=== PATIENT | male | born 1955 | race Caucasian/White ===

== ENCOUNTER 2021-02-03 06:40 | Outpatient (REF) | payer SELFPAY ==
[2021-02-03 06:57] LABS: Hematocrit 47.7 % (42-52); Hemoglobin 15.5 g/dl (14.0-18.0); Mean Corpuscular HGB Conc 32.5 g/dl (31.0-36.0); Mean Corpuscular Hemoglobin 27.3 pg (27.0-33.0); Mean Corpuscular Volume 84.1 fL (80-98); Mean Platelet Volume 8.3 fL (9.4-12.4); Platelet Count 238 X10*3/uL (160-400); Red Blood Count 5.67 X10*6/uL (4.60-5.80); Red Cell Distribution Width 13.1 % (11.0-16.0); White Blood Count 5.4 X10*3/uL (4.8-10.8)
[2021-02-03 07:34] LABS: Anion Gap 14 (12-20); Blood Urea Nitrogen 15 mg/dL (9-16); Calcium 9.2 mg/dL (8.4-10.2); Carbon Dioxide 28 mmol/L (22-29); Chloride 102 mmol/L (96-108); Estimated Glomerular Filt Rate > 60; Glucose Random 141 mg/dL (60-115); Potassium 4.4 mmol/L (3.3-5.1); Sodium 140 mmol/L (135-145)
== END 2021-02-03 06:41 | disposition home or self-care (01) ==
LOC: HO.MMNH1L 06:40
PROVIDERS: Visit Provider Family Medicine
DX: U07.1 COVID-19 (principal)
CPT/HCPCS: 36415; 80048; 85027

== ENCOUNTER 2021-02-10 00:40 | Outpatient (REF) | payer MEDICARE, MEDICAID, SELFPAY | END 2021-02-10 00:41 | disposition home or self-care (01) | LOC: HO.MMNH1L 00:40 | PROVIDERS: Visit Provider Family Medicine | DX: Z13.89 Encounter for screening for other disorder (principal) ==